=== PATIENT | female | born 1965 | race Asian ===

== ENCOUNTER 2016-10-13 14:00 | Inpatient (IN) | payer MEDICAID ==
[~2016-10-13 14:00] MED LIST: DIVA250T25 PO; DIVA500T35 PO; GABA-531 PO; LITH300C3 PO; OMEP20 PO; QUET200T PO; SEROQUEL; SULF1TAB42 PO; TRAZODONE
[2016-10-13] MEDS ORDERED: LORazepam 2 MG TABLET PO PRN (14:45)
[2016-10-13] MEDS ORDERED: ZOLPIDEM TARTRATE 10 MG TABLET PO PRN (14:45)
[2016-10-13] MEDS ORDERED: HALOPERIDOL 5 MG TABLET PO PRN (14:45)
[2016-10-13] MEDS: LITHIUM CARBONATE 300 MG CAPSULE PO SCH (16:20)
[2016-10-13] MEDS ORDERED: QUEtiapine FUMARATE 200 MG TABLET PO SCH (21:00)
[2016-10-13] MEDS: OLANZapine 10 MG TABLET PO SCH (21:00)
[2016-10-14] MEDS: LITHIUM CARBONATE 300 MG CAPSULE PO SCH ×2 (09:00→16:36)
[2016-10-14 09:30] VITALS: BP 187/88
[2016-10-14] MEDS: LEVOFLOXACIN 500 MG TABLET PO SCH (11:30)
[2016-10-14 17:25] VITALS: BP 132/85
[2016-10-14] MEDS: OLANZapine 10 MG TABLET PO SCH (21:27)
[2016-10-14] MEDS: QUEtiapine FUMARATE 200 MG TABLET PO SCH (21:27)
[2016-10-15 08:30] VITALS: BP 143/88
[2016-10-15] MEDS: LITHIUM CARBONATE 300 MG CAPSULE PO SCH ×2 (09:26→16:24)
[2016-10-15] MEDS: LEVOFLOXACIN 500 MG TABLET PO SCH (09:27)
[2016-10-15 16:40] VITALS: BP 113/73
[2016-10-15] MEDS: QUEtiapine FUMARATE 200 MG TABLET PO SCH (20:25)
[2016-10-15] MEDS: TraZODone HCL 50 MG TABLET PO SCH (20:25)
[2016-10-15] MEDS: OLANZapine 10 MG TABLET PO SCH (20:26)
[2016-10-16 08:00] VITALS: BP 124/86
[2016-10-16] MEDS: LEVOFLOXACIN 500 MG TABLET PO SCH (09:27)
[2016-10-16] MEDS: LITHIUM CARBONATE 300 MG CAPSULE PO SCH ×2 (09:27→16:49)
[2016-10-16] MEDS ORDERED: PALIPERIDONE PALMITATE 156 MG/ML SYRINGE IM ONE (11:00)
[2016-10-16] MEDS ORDERED: DIVA500T35 PO (11:07)
[2016-10-16 17:00] VITALS: BP 123/90
[2016-10-16] MEDS: QUEtiapine FUMARATE 200 MG TABLET PO SCH (20:26)
[2016-10-16] MEDS: TraZODone HCL 50 MG TABLET PO SCH (20:28)
[2016-10-17] MEDS: LEVOFLOXACIN 500 MG TABLET PO SCH (08:49)
[2016-10-17] MEDS: LITHIUM CARBONATE 300 MG CAPSULE PO SCH ×2 (08:49→18:02)
[2016-10-17 09:00] VITALS: BP 132/83
[2016-10-17 17:10] VITALS: BP 132/78
[2016-10-17] MEDS: QUEtiapine FUMARATE 200 MG TABLET PO SCH (20:33)
[2016-10-17] MEDS: TraZODone HCL 50 MG TABLET PO SCH (20:33)
[2016-10-18 09:00] VITALS: BP 112/67
[2016-10-18] MEDS: LITHIUM CARBONATE 300 MG CAPSULE PO SCH ×2 (10:20→17:45)
[2016-10-18] MEDS: LEVOFLOXACIN 500 MG TABLET PO SCH (10:20)
[2016-10-18 16:33] VITALS: BP 111/71
[2016-10-18] MEDS: QUEtiapine FUMARATE 200 MG TABLET PO SCH (21:39)
[2016-10-18] MEDS: TraZODone HCL 50 MG TABLET PO SCH (21:39)
[2016-10-19 05:50] VITALS: BP 118/78
[2016-10-19 08:00] VITALS: BP 141/48
[2016-10-19] MEDS: LITHIUM CARBONATE 300 MG CAPSULE PO SCH ×2 (08:25→16:15)
[2016-10-19] MEDS: LEVOFLOXACIN 500 MG TABLET PO SCH (08:26)
[2016-10-19 09:40] VITALS: BP 122/62
[2016-10-19 16:14] VITALS: BP 124/68
[2016-10-19] MEDS: TraZODone HCL 50 MG TABLET PO SCH (20:50)
[2016-10-19] MEDS: QUEtiapine FUMARATE 200 MG TABLET PO SCH (21:34)
[2016-10-20 08:00] VITALS: BP 127/77
[2016-10-20] MEDS: LITHIUM CARBONATE 300 MG CAPSULE PO SCH ×2 (08:52→16:15)
[2016-10-20] MEDS: QUEtiapine FUMARATE 200 MG TABLET PO SCH (20:22)
[2016-10-20] MEDS: TraZODone HCL 50 MG TABLET PO SCH ×2 (20:28→20:34)
[2016-10-21 07:02] VITALS: BP 137/95
[2016-10-21 08:00] VITALS: BP 129/84
[2016-10-21] MEDS: LITHIUM CARBONATE 300 MG CAPSULE PO SCH (08:58)
[2016-10-21] MEDS ORDERED: LITH300C3 PO (10:37)
[2016-10-21] MEDS ORDERED: PALI234D IM (10:38)
[2016-10-21] MEDS ORDERED: TRAZ-144 PO (10:39)
[2016-10-29] MEDS ORDERED: PALIPERIDONE PALMITATE 234 MG/1.5 ML SYRINGE IM SCH (09:00)
[2016-12-25] MEDS ORDERED: PALI234D IM (15:55)
[2016-12-25] MEDS ORDERED: NALT50 PO (15:55)
[2016-12-25] MEDS ORDERED: TRAZ150 PO (15:55)
== END 2016-10-21 14:00 | disposition home or self-care (01) | DRG 750 ==
LOC: 3EI 14:00
PROVIDERS: ADMIT Psychiatry & Neurology Child & Adolescent Psychiatry
DX: F25.0 Schizoaffective disorder, bipolar type (principal); N39.0 Urinary tract infection, site not specified; K21.9 Gastro-esophageal reflux disease without esophagitis; E66.9 Obesity, unspecified; F15.90 Other stimulant use, unspecified, uncomplicated; F17.200 Nicotine dependence, unspecified, uncomplicated; Z71.51 Drug abuse counseling and surveillance of drug abuser; Z79.899 Other long term (current) drug therapy; Z91.030 Bee allergy status; Z91.011 Allergy to milk products

== ENCOUNTER 2016-11-06 14:26 | Emergency (ER) | payer MEDICAID ==
[~2016-11-06 14:26] MED LIST changes: -DIVA250T25 PO; -DIVA500T35 PO; -GABA-531 PO; +PALI234D IM; -SULF1TAB42 PO; +TRAZ-144 PO
[2016-12-25] MEDS ORDERED: TRAZ150 PO (15:55)
[2016-12-25] MEDS ORDERED: NALT50 PO (15:55)
[2016-12-25] MEDS ORDERED: PALI234D IM (15:55)
== END 2016-11-06 15:29 | disposition left against medical advice (07) ==
LOC: EMS 14:27
DX: Z76.0 Encounter for issue of repeat prescription (principal)

== ENCOUNTER 2016-11-13 19:59 | Inpatient (IN) | payer MEDICAID, OTHER ==
[~2016-11-13] VITALS: Ht 167.6 cm; Wt 73.9 kg
[2016-11-13 20:35] LABS: BASOPHILS % (AUTO) 0.1 % (0.0-2.0); EOSINOPHILS % (AUTO) 0.7 % (1.0-6.0); HEMATOCRIT 42.3 % (36-46); HEMOGLOBIN 13.8 g/dL (12.0-16.0); LYMPHOCYTES # (AUTO) 1.9 K/uL (1.0-4.8); LYMPHOCYTES % (AUTO) 14.3 % (22.0-44.0); MEAN CORPUSCULAR HEMOGLOBIN 30.1 pg (26.0-34.0); MEAN CORPUSCULAR HGB CONC 32.5 G/dL (31.0-37.0); MEAN CORPUSCULAR VOLUME 92 fL (80-100); MONOCYTES # (AUTO) 0.8 K/uL (0.1-1.0); MONOCYTES % (AUTO) 6.3 % (2.0-9.0); NEUTROPHILS # (AUTO) 10.4 K/uL (1.8-7.7); NEUTROPHILS % (AUTO) 78.6 % (40.0-70.0); PLATELET COUNT (AUTO) 253 K/uL (150-450); RED BLOOD CELL COUNT(AUTO) 4.58 MIL/uL (4.00-5.20); RED CELL DISTRIBUTION WIDTH 13.9 % (11.5-14.5); WHITE BLOOD COUNT (AUTO) 13.2 K/uL (4.5-11.0)
[2016-11-13 20:45] LABS: ANION GAP 8 mmol/L (8-16); CALCIUM, TOTAL 9.5 mg/dL (8.8-10.5); CARBON DIOXIDE 30 mmol/L (22-29); CHLORIDE 99 mmol/L (98-107); CREATININE 0.92 mg/dL (0.60-1.30); GLOMERULAR FILTR. RATE CALC > 60 mL/min (>60); POTASSIUM 4.5 mmol/L (3.5-5.1); SODIUM SERUM 137 mmol/L (136-145); UREA NITROGEN, BLOOD 14 mg/dL (7-18)
[2016-11-13] MEDS ORDERED: HALOPERIDOL LACTATE 5 MG/ML VIAL IM ONE (20:45)
[2016-11-13] MEDS ORDERED: LORazepam 2 MG/ML VIAL IM ONE (20:45)
[2016-11-13] MEDS ORDERED: DiphenhydrAMINE HCL 50 MG/ML VIAL IM ONE (20:45)
[2016-11-13 20:50] LABS: ALANINE AMINOTRANSFERASE 20 U/L (12-78); ALBUMIN 4.1 g/dL (3.4-5.0); ASPARTATE AMINOTRANSFERASE 13 U/L (15-37); BILIRUBIN,TOTAL 0.3 mg/dL (0.1-1.0); TOTAL PROTEIN, SERUM 7.6 g/dL (6.4-8.2)
[2016-11-13 21:11] LABS: LITHIUM < 0.20 mmol/L (0.60-1.20)
[2016-11-13] MEDS ORDERED: HALOPERIDOL 5 MG TABLET PO PRN (21:45)
[2016-11-14 00:31] VITALS: BP 118/81
[2016-11-14 03:32] VITALS: BP 118/81
[2016-11-14] MEDS ORDERED: INFLUENZA VIRUS VACCINE QVS 2016-17 (3YR+)/PF 60 MCG/0.5 ML SYRINGE IM ONE (04:30)
[2016-11-14] MEDS: LORazepam 2 MG TABLET PO PRN ×2 (12:41→16:42)
[2016-11-14] MEDS: OLANZapine 5 MG RAPDIS TABLET PO SCH ×2 (12:41→16:15)
[2016-11-15 03:04] VITALS: BP 124/88
[2016-11-15] MEDS: LORazepam 2 MG TABLET PO PRN ×3 (04:59→17:07)
[2016-11-15 08:36] LABS: BASOPHILS # (AUTO) 0.03 K/uL (0.00-0.20); BASOPHILS % (AUTO) 0.3 % (0.0-2.0); EOSINOPHILS # (AUTO) 0.12 K/uL (0.00-0.70); EOSINOPHILS % (AUTO) 1.39 % (1.0-6.0); HEMATOCRIT 38.5 % (36-46); HEMOGLOBIN 12.6 g/dL (12.0-16.0); LYMPHOCYTES # (AUTO) 1.4 K/uL (1.0-4.8); LYMPHOCYTES % (AUTO) 15.7 % (22.0-44.0); MEAN CORPUSCULAR HEMOGLOBIN 30.2 pg (26.0-34.0); MEAN CORPUSCULAR HGB CONC 32.8 G/dL (31.0-37.0); MEAN CORPUSCULAR VOLUME 92 fL (80-100); MONOCYTES # (AUTO) 0.7 K/uL (0.1-1.0); MONOCYTES % (AUTO) 8.5 % (2.0-9.0); NEUTROPHILS # (AUTO) 6.4 K/uL (1.8-7.7); NEUTROPHILS % (AUTO) 74.1 % (40.0-70.0); PLATELET COUNT (AUTO) 206 K/uL (150-450); RED BLOOD CELL COUNT(AUTO) 4.19 MIL/uL (4.00-5.20); RED CELL DISTRIBUTION WIDTH 13.8 % (11.5-14.5); WHITE BLOOD COUNT (AUTO) 8.6 K/uL (4.5-11.0)
[2016-11-15 08:44] VITALS: BP 129/95
[2016-11-15] MEDS: OLANZapine 5 MG RAPDIS TABLET PO SCH ×2 (09:17→16:03)
[2016-11-15] MEDS: LITHIUM CARBONATE 300 MG CAPSULE PO SCH ×2 (13:43→16:03)
[2016-11-15] MEDS: TraZODone HCL 50 MG TABLET PO SCH (20:04)
[2016-11-16] MEDS: LORazepam 2 MG TABLET PO PRN ×2 (05:48→12:24)
[2016-11-16 09:01] VITALS: BP 106/64
[2016-11-16] MEDS: OLANZapine 5 MG RAPDIS TABLET PO SCH (09:24)
[2016-11-16] MEDS: LITHIUM CARBONATE 300 MG CAPSULE PO SCH ×2 (09:24→16:23)
[2016-11-16] MEDS: IBUPROFEN 600 MG TABLET PO PRN (14:12)
[2016-11-16] MEDS ORDERED: ACETAMINOPHEN 325 MG TABLET PO PRN (14:15)
[2016-11-16 16:14] VITALS: BP 112/60
[2016-11-16] MEDS: GuaiFENesin/D-METHORPHAN [SUGAR-FREE] 200-20MG/10 ML SYRUP UDCUP PO PRN (16:23)
[2016-11-16] MEDS: TraZODone HCL 50 MG TABLET PO SCH (20:23)
[2016-11-17 01:15] VITALS: BP 110/65
[2016-11-17] MEDS: ZOLPIDEM TARTRATE 10 MG TABLET PO PRN ×2 (01:18→21:28)
[2016-11-17 02:15] VITALS: BP 117/75
[2016-11-17] MEDS: LORazepam 2 MG TABLET PO PRN ×2 (02:17→17:00)
[2016-11-17] MEDS: LITHIUM CARBONATE 300 MG CAPSULE PO SCH ×2 (08:16→17:00)
[2016-11-17 08:49] VITALS: BP 118/78
[2016-11-17] MEDS: IBUPROFEN 600 MG TABLET PO PRN (09:51)
[2016-11-17] MEDS: GuaiFENesin/D-METHORPHAN [SUGAR-FREE] 200-20MG/10 ML SYRUP UDCUP PO PRN (17:22)
[2016-11-17] MEDS: TraZODone HCL 50 MG TABLET PO SCH (21:27)
[2016-11-18 01:33] VITALS: BP 104/65
[2016-11-18] MEDS: LORazepam 2 MG TABLET PO PRN ×3 (01:33→17:46)
[2016-11-18] MEDS: LITHIUM CARBONATE 300 MG CAPSULE PO SCH ×2 (08:39→16:02)
[2016-11-18 08:43] VITALS: BP 116/67
[2016-11-18 12:47] VITALS: BP 120/70
[2016-11-18] MEDS: IBUPROFEN 600 MG TABLET PO PRN ×2 (12:47→20:11)
[2016-11-18 16:42] VITALS: BP 131/86
[2016-11-18 20:11] VITALS: BP 126/77
[2016-11-18] MEDS: TraZODone HCL 50 MG TABLET PO SCH (20:19)
[2016-11-19 03:20] VITALS: BP 108/74
[2016-11-19] MEDS: IBUPROFEN 600 MG TABLET PO PRN ×2 (03:30→11:40)
[2016-11-19] MEDS: LORazepam 2 MG TABLET PO PRN ×2 (03:30→08:38)
[2016-11-19] MEDS: LITHIUM CARBONATE 300 MG CAPSULE PO SCH (08:21)
[2016-11-19 09:04] VITALS: BP 116/84
[2016-11-19 11:40] VITALS: BP 114/72
[2016-11-19] MEDS ORDERED: PALIPERIDONE PALMITATE 234 MG/1.5 ML SYRINGE IM SCH (13:00)
[2016-12-25] MEDS ORDERED: PALI234D IM (15:55)
[2016-12-25] MEDS ORDERED: NALT50 PO (15:55)
[2016-12-25] MEDS ORDERED: TRAZ150 PO (15:55)
== END 2016-11-19 14:40 | disposition home or self-care (01) | DRG 750 ==
LOC: EMS 20:01 → B3A 21:30
PROVIDERS: ADMIT Psychiatry & Neurology Child & Adolescent Psychiatry
DX: F25.0 Schizoaffective disorder, bipolar type (principal); R45.851 Suicidal ideations; F14.10 Cocaine abuse, uncomplicated; K21.9 Gastro-esophageal reflux disease without esophagitis; F15.90 Other stimulant use, unspecified, uncomplicated; F17.210 Nicotine dependence, cigarettes, uncomplicated; Z91.030 Bee allergy status; Z91.011 Allergy to milk products; Z79.899 Other long term (current) drug therapy; Z90.49 Acquired absence of other specified parts of digestive tract
CPT/HCPCS: 90471; 96372; 99285; G0480; J1200; J1630; J2060

== ENCOUNTER 2017-01-29 02:43 | Emergency (ER) | payer MEDICAID ==
[~2017-01-29] VITALS: Ht 157.5 cm; Wt 61.0 kg
[~2017-01-29 02:43] MED LIST changes: +NALT50 PO; -OMEP20 PO; -QUET200T PO; -SEROQUEL; +TRAZ150 PO; -TRAZODONE
[2017-01-29 02:46] VITALS: BP 151/87
== END 2017-01-29 03:23 | disposition left against medical advice (07) ==
LOC: EMS 02:45
DX: Z00.8 Encounter for other general examination (principal); Z53.21 Procedure and treatment not carried out due to patient leaving prior to being seen by health care provider

== ENCOUNTER 2017-01-30 12:20 | Inpatient (IN) | payer MEDICAID, OTHER ==
[~2017-01-30] VITALS: Ht 167.6 cm; Wt 73.4 kg
[2017-01-30 13:01] LABS: BASOPHILS % (AUTO) 0.3 % (0.0-2.0); EOSINOPHILS % (AUTO) 1.6 % (1.0-6.0); HEMATOCRIT 36.7 % (36-46); HEMOGLOBIN 11.9 g/dL (12.0-16.0); LYMPHOCYTES # (AUTO) 1.8 K/uL (1.0-4.8); MEAN CORPUSCULAR HEMOGLOBIN 29.1 pg (26.0-34.0); MEAN CORPUSCULAR HGB CONC 32.5 G/dL (31.0-37.0); MEAN CORPUSCULAR VOLUME 90 fL (80-100); MONOCYTES # (AUTO) 0.8 K/uL (0.1-1.0); MONOCYTES % (AUTO) 7.5 % (2.0-9.0); NEUTROPHILS # (AUTO) 7.9 K/uL (1.8-7.7); NEUTROPHILS % (AUTO) 73.6 % (40.0-70.0); PLATELET COUNT (AUTO) 213 K/uL (150-450); RED BLOOD CELL COUNT(AUTO) 4.09 MIL/uL (4.00-5.20); WHITE BLOOD COUNT (AUTO) 10.7 K/uL (4.5-11.0)
[2017-01-30 13:11] LABS: ANION GAP 7 mmol/L (8-16); CALCIUM, TOTAL 8.4 mg/dL (8.8-10.5); CARBON DIOXIDE 28 mmol/L (22-29); CHLORIDE 108 mmol/L (98-107); CREATININE 0.76 mg/dL (0.60-1.30); GLOMERULAR FILTR. RATE CALC > 60 mL/min (>60); POTASSIUM 3.4 mmol/L (3.5-5.1); SODIUM SERUM 143 mmol/L (136-145); UREA NITROGEN, BLOOD 15 mg/dL (7-18)
[2017-01-30 13:18] LABS: ACETAMINOPHEN < 2 mcg/mL (10-30); ALANINE AMINOTRANSFERASE 19 U/L (12-78); ALBUMIN 3.3 g/dL (3.4-5.0); ASPARTATE AMINOTRANSFERASE 8 U/L (15-37); BILIRUBIN,TOTAL 0.2 mg/dL (0.1-1.0); TOTAL PROTEIN, SERUM 6.3 g/dL (6.4-8.2)
[2017-01-30 13:27] LABS: SALICYLATE 2.8 mg/dL (2.8-20.0)
[2017-01-30] MEDS: POTASSIUM CHLORIDE 20 MEQ ER TABLET PO ONE ×2 (14:17→14:18)
[2017-01-30] MEDS: LITHIUM CARBONATE 300 MG CAPSULE PO SCH (16:59)
[2017-01-30] MEDS: RisperiDONE 2 MG TABLET PO SCH (16:59)
[2017-01-30] MEDS: LORazepam 2 MG TABLET PO PRN (17:44)
[2017-01-30] MEDS: QUEtiapine FUMARATE 100 MG TABLET PO PRN (17:44)
[2017-01-30 17:50] LABS: CHOL/HDL RATIO 3.8 (3.9-5.7)
[2017-01-30] MEDS ORDERED: POTASSIUM CHL 10 MEQ/WATER 50 ML IV PRN (21:15)
[2017-01-30] MEDS ORDERED: POTASSIUM CHLORIDE 20 MEQ ER TABLET PO PRN (21:15)
[2017-01-31] MEDS ORDERED: FluPHENAZine HCL 2.5 MG/ML INJ IM ONE ×3 (08:15→11:30)
[2017-01-31] MEDS ORDERED: DiphenhydrAMINE HCL 50 MG/ML VIAL IM ONE ×2 (08:15→11:30)
[2017-01-31] MEDS ORDERED: LORazepam 2 MG/ML VIAL IM ONE ×2 (08:15→11:30)
[2017-01-31] MEDS ORDERED: DiphenhydrAMINE HCL 50 MG/ML VIAL ONE (08:16)
[2017-01-31] MEDS: RisperiDONE 2 MG TABLET PO SCH ×2 (08:25→16:29)
[2017-01-31] MEDS: LITHIUM CARBONATE 300 MG CAPSULE PO SCH ×2 (08:25→16:30)
[2017-01-31 09:04] VITALS: BP 123/86
[2017-01-31] MEDS: QUEtiapine FUMARATE 100 MG TABLET PO PRN (16:00)
[2017-01-31] MEDS: LORazepam 2 MG TABLET PO PRN (16:00)
[2017-02-01] MEDS: LITHIUM CARBONATE 300 MG CAPSULE PO SCH ×2 (07:59→16:25)
[2017-02-01] MEDS: RisperiDONE 2 MG TABLET PO SCH ×2 (07:59→16:25)
[2017-02-01 08:47] VITALS: BP 116/71
[2017-02-01] MEDS: ACETAMINOPHEN 325 MG TABLET PO PRN (08:47)
[2017-02-01] MEDS: QUEtiapine FUMARATE 100 MG TABLET PO PRN (09:00)
[2017-02-01] MEDS: LORazepam 2 MG TABLET PO PRN (09:00)
[2017-02-02 00:56] VITALS: BP 121/69
[2017-02-02] MEDS: IBUPROFEN 600 MG TABLET PO PRN ×2 (00:56→10:47)
[2017-02-02] MEDS: ACETAMINOPHEN 325 MG TABLET PO PRN ×3 (05:56→23:55)
[2017-02-02 08:02] VITALS: BP 116/75
[2017-02-02] MEDS: LORazepam 2 MG TABLET PO PRN ×3 (10:24→23:29)
[2017-02-02] MEDS: LITHIUM CARBONATE 300 MG CAPSULE PO SCH ×2 (10:24→16:26)
[2017-02-02] MEDS: RisperiDONE 2 MG TABLET PO SCH ×2 (10:24→16:26)
[2017-02-02] MEDS: QUEtiapine FUMARATE 100 MG TABLET PO PRN (10:25)
[2017-02-02 16:27] VITALS: BP 139/61
[2017-02-02] MEDS: ZOLPIDEM TARTRATE 10 MG TABLET PO PRN (23:29)
[2017-02-02 23:52] VITALS: BP 155/65
[2017-02-03] MEDS: ACETAMINOPHEN 325 MG TABLET PO PRN (06:09)
[2017-02-03 08:28] VITALS: BP 114/68
[2017-02-03] MEDS: RisperiDONE 2 MG TABLET PO SCH ×2 (09:45→17:15)
[2017-02-03] MEDS: LITHIUM CARBONATE 300 MG CAPSULE PO SCH ×2 (09:45→17:15)
[2017-02-03] MEDS: LORazepam 2 MG TABLET PO PRN ×2 (11:36→20:25)
[2017-02-03] MEDS: QUEtiapine FUMARATE 100 MG TABLET PO PRN (12:17)
[2017-02-03] MEDS: IBUPROFEN 600 MG TABLET PO PRN (13:23)
[2017-02-03] MEDS: LITHIUM CARBONATE 600 MG CAPSULE PO SCH (20:26)
[2017-02-03 21:46] VITALS: BP 122/74
[2017-02-04] MEDS: LORazepam 2 MG TABLET PO PRN ×2 (00:45→10:35)
[2017-02-04] MEDS: ZOLPIDEM TARTRATE 10 MG TABLET PO PRN ×2 (02:19→21:59)
[2017-02-04] MEDS: QUEtiapine FUMARATE 100 MG TABLET PO PRN (02:19)
[2017-02-04] MEDS: LITHIUM CARBONATE 300 MG CAPSULE PO SCH (08:25)
[2017-02-04] MEDS: RisperiDONE 2 MG TABLET PO SCH ×2 (08:25→15:54)
[2017-02-04 08:37] VITALS: BP 104/52
[2017-02-04 17:25] VITALS: BP 121/73
[2017-02-04] MEDS: LITHIUM CARBONATE 600 MG CAPSULE PO SCH (19:56)
[2017-02-05] MEDS: ACETAMINOPHEN 325 MG TABLET PO PRN (06:45)
[2017-02-05] MEDS: LITHIUM CARBONATE 300 MG CAPSULE PO SCH (08:02)
[2017-02-05] MEDS: RisperiDONE 2 MG TABLET PO SCH (08:02)
[2017-02-05] MEDS: LORazepam 2 MG TABLET PO PRN ×2 (08:02→14:22)
[2017-02-05] MEDS: NICOTINE 14 MG/24 HOUR PATCH TD SCH (08:06)
[2017-02-05 08:43] VITALS: BP 98/57
[2017-02-05] MEDS ORDERED: LITH600 PO (09:47)
[2017-02-05] MEDS ORDERED: OLAN7.5T2 PO (09:47)
[2017-02-05] MEDS: LITHIUM CARBONATE 600 MG CAPSULE PO SCH (21:43)
[2017-02-05] MEDS: OLANZapine 7.5 MG TABLET PO SCH (21:43)
[2017-02-06 04:30] VITALS: BP 111/65
[2017-02-06] MEDS: IBUPROFEN 600 MG TABLET PO PRN ×2 (04:33→14:52)
[2017-02-06 08:37] VITALS: BP 109/60
[2017-02-06] MEDS: LITHIUM CARBONATE 300 MG CAPSULE PO SCH (08:48)
[2017-02-06] MEDS: LORazepam 2 MG TABLET PO PRN ×2 (08:48→16:26)
[2017-02-06] MEDS: NICOTINE 14 MG/24 HOUR PATCH TD SCH (08:50)
[2017-02-06] MEDS: ACETAMINOPHEN 325 MG TABLET PO PRN (12:19)
[2017-02-06 16:16] VITALS: BP 115/65
[2017-02-06] MEDS: OLANZapine 7.5 MG TABLET PO SCH (22:21)
[2017-02-06] MEDS: LITHIUM CARBONATE 600 MG CAPSULE PO SCH (22:22)
[2017-02-07] MEDS: IBUPROFEN 600 MG TABLET PO PRN ×3 (00:39→18:07)
[2017-02-07 08:13] VITALS: BP 106/71
[2017-02-07] MEDS: NICOTINE 14 MG/24 HOUR PATCH TD SCH (08:13)
[2017-02-07] MEDS: LITHIUM CARBONATE 300 MG CAPSULE PO SCH (08:13)
[2017-02-07] MEDS: LORazepam 2 MG TABLET PO PRN ×2 (08:18→18:07)
[2017-02-07 16:38] VITALS: BP 116/68
[2017-02-07] MEDS: LITHIUM CARBONATE 600 MG CAPSULE PO SCH (20:32)
[2017-02-07] MEDS: OLANZapine 7.5 MG TABLET PO SCH (20:33)
[2017-02-07] MEDS: ZOLPIDEM TARTRATE 10 MG TABLET PO PRN (23:15)
[2017-02-08] MEDS: NICOTINE 14 MG/24 HOUR PATCH TD SCH (08:19)
[2017-02-08] MEDS: LITHIUM CARBONATE 300 MG CAPSULE PO SCH (08:19)
[2017-02-08 08:27] VITALS: BP 107/82
[2017-02-08] MEDS: LORazepam 2 MG TABLET PO PRN (16:58)
[2017-02-08] MEDS: LITHIUM CARBONATE 600 MG CAPSULE PO SCH (20:09)
[2017-02-08] MEDS: OLANZapine 7.5 MG TABLET PO SCH (20:10)
[2017-02-09] MEDS: ZOLPIDEM TARTRATE 10 MG TABLET PO PRN (00:04)
[2017-02-09] MEDS: LORazepam 2 MG TABLET PO PRN (00:04)
[2017-02-09 08:51] VITALS: BP 98/72
[2017-02-09] MEDS: LITHIUM CARBONATE 300 MG CAPSULE PO SCH (09:20)
[2017-02-09] MEDS: NICOTINE 14 MG/24 HOUR PATCH TD SCH (09:25)
== END 2017-02-09 12:01 | disposition home or self-care (01) | DRG 750 ==
LOC: EMS 12:21 → 3EC 16:03
DX: F25.0 Schizoaffective disorder, bipolar type (principal); R45.851 Suicidal ideations; F17.210 Nicotine dependence, cigarettes, uncomplicated; F14.90 Cocaine use, unspecified, uncomplicated; F15.90 Other stimulant use, unspecified, uncomplicated; E78.1 Pure hyperglyceridemia; E87.6 Hypokalemia; Z53.29 Procedure and treatment not carried out because of patient's decision for other reasons; Z91.011 Allergy to milk products; Z88.8 Allergy status to other drugs, medicaments and biological substances; Z91.048 Other nonmedicinal substance allergy status; Z79.899 Other long term (current) drug therapy
CPT/HCPCS: 84132; 99285; G0480; G0481; J1200; J2060; J3490

== ENCOUNTER 2017-02-13 12:18 | Emergency (ER) | payer MEDICAID ==
[~2017-02-13] VITALS: Ht 160 cm; Wt 63.6 kg
[~2017-02-13 12:18] MED LIST changes: +LITH600 PO; +OLAN7.5T2 PO
[2017-02-13 12:53] VITALS: BP 124/83
[2017-02-13 13:32] LABS: APPEARANCE,URINE CLOUDY (CLEAR); GLUCOSE, URINE (UA) NEGATIVE (NEGATIVE); KETONES,URINE 40 mg/dL (NEGATIVE); LEUKOCYTE ESTERASE ,URINE NEGATIVE (NEGATIVE); OCCULT BLOOD,URINE TRACE (NEGATIVE); PH,URINE 6.5 (5.0-8.0); PROTEIN,URINE TRACE (NEGATIVE)
[2017-02-13 13:33] LABS: ADD UA MICROSCOPIC YES
[2017-02-13 13:40] LABS: RBC,URINE 0-2 /HPF (0-2); SQUAMOUS EPITHELIAL CELL,UR Few /LPF (None Seen)
== END 2017-02-13 15:48 | disposition left against medical advice (07) ==
LOC: EMS 12:22
DX: R44.0 Auditory hallucinations (principal); F20.9 Schizophrenia, unspecified; F17.210 Nicotine dependence, cigarettes, uncomplicated; Z53.21 Procedure and treatment not carried out due to patient leaving prior to being seen by health care provider
CPT/HCPCS: 87086

== ENCOUNTER 2017-12-27 17:15 | Emergency (ER) | payer MEDICAID ==
[~2017-12-27 17:15] MED LIST changes: -NALT50 PO; -PALI234D IM; -TRAZ-144 PO; -TRAZ150 PO
== END 2017-12-27 18:57 | disposition left against medical advice (07) ==
LOC: EMS 17:18
DX: Z00.8 Encounter for other general examination (principal); Z53.21 Procedure and treatment not carried out due to patient leaving prior to being seen by health care provider

== ENCOUNTER 2018-01-18 14:01 | Inpatient (IN) | payer MEDICAID, OTHER ==
[~2018-01-18] VITALS: Ht 160 cm; Wt 72.1 kg
[2018-01-18] MEDS ORDERED: LORazepam 2 MG/ML VIAL IM ONE (14:30)
[2018-01-18] MEDS ORDERED: DiphenhydrAMINE HCL 50 MG/ML VIAL IM ONE (14:30)
[2018-01-18 15:05] LABS: BASOPHILS % (AUTO) 0.6 % (0.0-2.0); EOSINOPHILS % (AUTO) 0.6 % (1.0-6.0); HEMATOCRIT 46.1 % (36-46); HEMOGLOBIN 15.9 g/dL (12.0-16.0); LYMPHOCYTES # (AUTO) 2.3 K/uL (1.0-4.8); LYMPHOCYTES % (AUTO) 24.2 % (22.0-44.0); MEAN CORPUSCULAR HEMOGLOBIN 31.3 pg (26.0-34.0); MEAN CORPUSCULAR HGB CONC 34.4 G/dL (31.0-37.0); MEAN CORPUSCULAR VOLUME 91 fL (80-100); MONOCYTES # (AUTO) 0.6 K/uL (0.1-1.0); MONOCYTES % (AUTO) 5.9 % (2.0-9.0); NEUTROPHILS # (AUTO) 6.4 K/uL (1.8-7.7); NEUTROPHILS % (AUTO) 68.7 % (40.0-70.0); PLATELET COUNT (AUTO) 232 K/uL (150-450); RED BLOOD CELL COUNT(AUTO) 5.07 MIL/uL (4.00-5.20); RED CELL DISTRIBUTION WIDTH 13.1 % (11.5-14.5)
[2018-01-18 15:14] LABS: ANION GAP 9 mmol/L (8-16); CALCIUM, TOTAL 9.2 mg/dL (8.8-10.5); CARBON DIOXIDE 24 mmol/L (22-29); CHLORIDE 105 mmol/L (98-107); CREATININE 0.49 mg/dL (0.60-1.30); GLOMERULAR FILTR. RATE CALC > 60 mL/min (>60); GLUCOSE,RANDOM 109 mg/dL (70-110); POTASSIUM 4.1 mmol/L (3.5-5.1); SODIUM SERUM 138 mmol/L (136-145); UREA NITROGEN, BLOOD 14 mg/dL (7-18)
[2018-01-18] MEDS ORDERED: ZOLPIDEM TARTRATE 10 MG TABLET PO PRN (15:15)
[2018-01-18 15:20] LABS: ALANINE AMINOTRANSFERASE 24 U/L (12-78); ALBUMIN 4.3 g/dL (3.4-5.0); ALKALINE PHOSPHATASE 124 U/L (46-116); ASPARTATE AMINOTRANSFERASE 14 U/L (15-37); BILIRUBIN,TOTAL 0.4 mg/dL (0.1-1.0); TOTAL PROTEIN, SERUM 7.9 g/dL (6.4-8.2)
[2018-01-18 15:45] LABS: AMPHET/METH SCREEN,URINE NEGATIVE (NEGATIVE); BARBITURATE SCREEN, URINE NEGATIVE (NEGATIVE); BENZODIAZEPINES SCREEN,URINE NEGATIVE (NEGATIVE); CANNABINOID SCREEN,URINE NEGATIVE (NEGATIVE); COCAINE SCREEN,URINE NEGATIVE (NEGATIVE); METHADONE SCREEN, URINE NEGATIVE (NEGATIVE); OPIATE SCREEN,URINE NEGATIVE (NEGATIVE)
[2018-01-18 15:52] LABS: PHENCYCLIDINE SCREEN,URINE NEGATIVE (NEGATIVE)
[2018-01-18 16:05] LABS: LITHIUM < 0.20 mmol/L (0.60-1.20)
[2018-01-18 16:21] LABS: APPEARANCE,URINE CLEAR (CLEAR); BILIRUBIN,URINE NEGATIVE (NEGATIVE); GLUCOSE, URINE (UA) NEGATIVE (NEGATIVE); KETONES,URINE NEGATIVE (NEGATIVE); LEUKOCYTE ESTERASE ,URINE NEGATIVE (NEGATIVE); NITRATE,URINE NEGATIVE (NEGATIVE); OCCULT BLOOD,URINE NEGATIVE (NEGATIVE); PROTEIN,URINE NEGATIVE (NEGATIVE); UROBILINOGEN,URINE 0.2 mg/dL (<=1.0)
[2018-01-18] MEDS ORDERED: IPRATROPIUM BROMIDE 0.5 MG/2.5 ML NEB SOLUTION NEB ONE (16:21)
[2018-01-18 21:08] VITALS: BP 142/83
[2018-01-19 06:25] VITALS: BP 117/69
[2018-01-19 08:19] VITALS: BP 123/69
[2018-01-19] MEDS: LORazepam 2 MG TABLET PO PRN (09:45)
[2018-01-19 16:18] VITALS: BP 116/61
[2018-01-19] MEDS: LITHIUM CARBONATE 300 MG ER TABLET PO SCH (20:25)
[2018-01-19] MEDS: OLANZapine 7.5 MG TABLET PO SCH (20:25)
[2018-01-20 02:51] VITALS: BP 124/87
[2018-01-20] MEDS: LORazepam 2 MG TABLET PO PRN ×3 (03:00→17:32)
[2018-01-20] MEDS: NICOTINE 14 MG/24 HOUR PATCH TD SCH (08:38)
[2018-01-20 08:47] LABS: CHOL/HDL RATIO 3.5 (3.9-5.7); CHOLESTEROL 160 mg/dL (131-200); HDL CHOLESTEROL 46 mg/dL (40-60); TRIGLYCERIDES 81 mg/dL (15-150)
[2018-01-20 08:48] LABS: HCG,QUANTITATIVE < 1 mIU/mL (0-6); LDL CHOL (CALC.) 98 mg/dL (0-130)
[2018-01-20 11:52] VITALS: BP 130/75
[2018-01-20] MEDS: LITHIUM CARBONATE 300 MG ER TABLET PO SCH (20:03)
[2018-01-20] MEDS: OLANZapine 7.5 MG TABLET PO SCH (20:03)
[2018-01-21 06:15] VITALS: BP 125/72
[2018-01-21 09:00] VITALS: BP 122/68
[2018-01-21] MEDS: NICOTINE 14 MG/24 HOUR PATCH TD SCH (09:00)
[2018-01-21] MEDS: LORazepam 2 MG TABLET PO PRN ×2 (13:55→18:44)
[2018-01-21] MEDS: OLANZapine 7.5 MG TABLET PO SCH (20:21)
[2018-01-21] MEDS: LITHIUM CARBONATE 300 MG ER TABLET PO SCH (20:22)
[2018-01-22] MEDS: LORazepam 2 MG TABLET PO PRN ×3 (04:52→17:21)
[2018-01-22 05:15] VITALS: BP 121/74
[2018-01-22] MEDS: NICOTINE 14 MG/24 HOUR PATCH TD SCH (08:54)
[2018-01-22 16:09] VITALS: BP 109/64
[2018-01-22] MEDS: OLANZapine 7.5 MG TABLET PO SCH (20:31)
[2018-01-22] MEDS: LITHIUM CARBONATE 300 MG ER TABLET PO SCH (20:31)
[2018-01-23] MEDS: NICOTINE 14 MG/24 HOUR PATCH TD SCH (09:00)
[2018-01-23 16:32] VITALS: BP 125/72
[2018-01-23] MEDS: LORazepam 2 MG TABLET PO PRN (16:39)
[2018-01-23] MEDS: OLANZapine 7.5 MG TABLET PO SCH (20:31)
[2018-01-23] MEDS: LITHIUM CARBONATE 300 MG ER TABLET PO SCH (20:31)
[2018-01-24 00:05] VITALS: BP 127/68
[2018-01-24] MEDS: NICOTINE 14 MG/24 HOUR PATCH TD SCH (08:02)
[2018-01-24 08:15] VITALS: BP 111/63
[2018-01-24 16:20] VITALS: BP 132/72
[2018-01-24] MEDS: LORazepam 2 MG TABLET PO PRN (17:18)
[2018-01-24] MEDS: OLANZapine 7.5 MG TABLET PO SCH (20:35)
[2018-01-24] MEDS: LITHIUM CARBONATE 450 MG ER TABLET PO SCH (20:36)
[2018-01-25 01:15] VITALS: BP 112/81
[2018-01-25] MEDS: LORazepam 2 MG TABLET PO PRN ×2 (01:16→16:30)
[2018-01-25 08:54] VITALS: BP 120/73
[2018-01-25] MEDS: NICOTINE 14 MG/24 HOUR PATCH TD SCH (09:00)
[2018-01-25 16:00] VITALS: BP 138/78
[2018-01-25] MEDS: OLANZapine 7.5 MG TABLET PO SCH (20:44)
[2018-01-25] MEDS: LITHIUM CARBONATE 450 MG ER TABLET PO SCH (20:48)
[2018-01-26 06:36] VITALS: BP 122/69
[2018-01-26] MEDS: LORazepam 2 MG TABLET PO PRN ×2 (08:26→13:16)
[2018-01-26] MEDS: NICOTINE 14 MG/24 HOUR PATCH TD SCH (08:28)
[2018-01-26 16:24] VITALS: BP 117/66
[2018-01-26] MEDS: LITHIUM CARBONATE 450 MG ER TABLET PO SCH (20:44)
[2018-01-26] MEDS: OLANZapine 10 MG TABLET PO SCH (20:44)
[2018-01-27 08:31] VITALS: BP 122/79
[2018-01-27] MEDS: NICOTINE 14 MG/24 HOUR PATCH TD SCH (09:00)
[2018-01-27] MEDS: LORazepam 2 MG TABLET PO PRN ×2 (09:02→16:13)
[2018-01-27] MEDS: LITHIUM CARBONATE 450 MG ER TABLET PO SCH (20:51)
[2018-01-27] MEDS: OLANZapine 10 MG TABLET PO SCH (20:52)
[2018-01-28 08:19] VITALS: BP 126/79
[2018-01-28] MEDS: NICOTINE 14 MG/24 HOUR PATCH TD SCH (08:57)
[2018-01-28] MEDS: LORazepam 2 MG TABLET PO PRN ×2 (09:03→16:40)
[2018-01-28 16:05] VITALS: BP 113/68
[2018-01-28] MEDS: LITHIUM CARBONATE 450 MG ER TABLET PO SCH (20:34)
[2018-01-28] MEDS: OLANZapine 10 MG TABLET PO SCH (20:35)
[2018-01-29] MEDS: NICOTINE 14 MG/24 HOUR PATCH TD SCH (09:37)
[2018-01-29] MEDS: LORazepam 2 MG TABLET PO PRN ×3 (09:37→20:05)
[2018-01-29 16:19] VITALS: BP 117/73
[2018-01-29] MEDS: OLANZapine 10 MG TABLET PO SCH (20:05)
[2018-01-29] MEDS: LITHIUM CARBONATE 450 MG ER TABLET PO SCH (20:05)
[2018-01-30 06:33] VITALS: BP 118/74
[2018-01-30] MEDS: NICOTINE 14 MG/24 HOUR PATCH TD SCH (09:50)
[2018-01-30 10:56] VITALS: BP 125/65
[2018-01-30] MEDS: LORazepam 2 MG TABLET PO PRN ×2 (12:15→20:26)
[2018-01-30 16:30] VITALS: BP 133/85
[2018-01-30] MEDS: LITHIUM CARBONATE 450 MG ER TABLET PO SCH (20:25)
[2018-01-30] MEDS: OLANZapine 10 MG TABLET PO SCH (20:26)
[2018-01-31 06:40] VITALS: BP 116/61
[2018-01-31 08:15] VITALS: BP 118/74
[2018-01-31] MEDS: NICOTINE 14 MG/24 HOUR PATCH TD SCH (09:00)
[2018-01-31 16:20] VITALS: BP 136/65
[2018-01-31] MEDS: LORazepam 2 MG TABLET PO PRN (18:20)
[2018-01-31] MEDS: LITHIUM CARBONATE 450 MG ER TABLET PO SCH (21:37)
[2018-01-31] MEDS: OLANZapine 10 MG TABLET PO SCH (21:38)
[2018-02-01 05:41] VITALS: BP 124/70
[2018-02-01] MEDS: NICOTINE 14 MG/24 HOUR PATCH TD SCH (08:03)
[2018-02-01 08:18] VITALS: BP 110/72
[2018-02-01] MEDS: LORazepam 2 MG TABLET PO PRN ×2 (12:21→23:16)
[2018-02-01 16:32] VITALS: BP 132/77
[2018-02-01] MEDS: OLANZapine 10 MG TABLET PO SCH (20:15)
[2018-02-01] MEDS: LITHIUM CARBONATE 450 MG ER TABLET PO SCH (20:15)
[2018-02-02 00:30] VITALS: BP 126/86
[2018-02-02] MEDS: NICOTINE 14 MG/24 HOUR PATCH TD SCH (08:15)
[2018-02-02 08:20] VITALS: BP 125/66
[2018-02-02 16:34] VITALS: BP 119/60
[2018-02-02] MEDS: LORazepam 2 MG TABLET PO PRN (17:32)
[2018-02-02] MEDS: LITHIUM CARBONATE 450 MG ER TABLET PO SCH (21:14)
[2018-02-02] MEDS: OLANZapine 10 MG TABLET PO SCH (21:14)
[2018-02-03 05:32] VITALS: BP 118/70
[2018-02-03] MEDS: NICOTINE 14 MG/24 HOUR PATCH TD SCH (08:18)
[2018-02-03] MEDS: LORazepam 2 MG TABLET PO PRN ×2 (09:28→16:50)
[2018-02-03 16:05] VITALS: BP 118/66
[2018-02-03] MEDS: OLANZapine 10 MG TABLET PO SCH (20:51)
[2018-02-03] MEDS: LITHIUM CARBONATE 450 MG ER TABLET PO SCH (20:51)
[2018-02-04 00:58] VITALS: BP 124/72
[2018-02-04] MEDS ORDERED: OLAN10TA20 PO (01:19)
[2018-02-04] MEDS ORDERED: LITH450CRT PO (01:19)
[2018-02-04 08:43] VITALS: BP 112/72
[2018-02-04] MEDS: NICOTINE 14 MG/24 HOUR PATCH TD SCH (09:36)
== END 2018-02-04 13:30 | disposition home or self-care (01) | DRG 750 ==
LOC: EMS 14:03 → B3A 19:30
DX: F25.0 Schizoaffective disorder, bipolar type (principal); Z91.19 Patient's noncompliance with other medical treatment and regimen; E78.1 Pure hyperglyceridemia; D64.9 Anemia, unspecified; E78.00 Pure hypercholesterolemia, unspecified; E78.5 Hyperlipidemia, unspecified; F14.90 Cocaine use, unspecified, uncomplicated; F15.90 Other stimulant use, unspecified, uncomplicated; F17.210 Nicotine dependence, cigarettes, uncomplicated; Z79.899 Other long term (current) drug therapy; Z88.8 Allergy status to other drugs, medicaments and biological substances; Z91.011 Allergy to milk products; Z91.030 Bee allergy status
CPT/HCPCS: 96372; 99285; 99406; G0480; J1200; J2060